=== PATIENT | male | born 1970 | race African-American/Black ===

== ENCOUNTER 2023-03-28 02:23 | Emergency (ER) | payer SELFPAY ==
[~2023-03-28] VITALS: Ht 160 cm; Wt 50.0 kg
[2023-03-28] MEDS ORDERED: CLIN60GE5 TP (04:31)
[2023-03-28] MEDS ORDERED: SULF1TAB48 MT (04:31)
[2023-03-28] MEDS ORDERED: CEPH500T MT (04:31)
[2023-03-28 04:57] VITALS: BP 140/71
== END 2023-03-28 04:58 | disposition home or self-care (01) ==
LOC: ER 02:23
DX: R52 Pain, unspecified (principal)
CPT/HCPCS: 99283